=== PATIENT | female | born 1990 | race Caucasian/White ===

== ENCOUNTER 2020-01-25 14:26 | Emergency (ER) | payer OTHER ==
[2020-01-25 14:42] VITALS: BP 137/90; PULSE 88; RESP 16; TEMP 99.2
--- NOTE | 2020-01-25 15:27 | ED ---
General Adult HPI - General Chief complaint: Skin/Abscess/Foreign Body Stated complaint: L Armpit Bumps Time Seen by Provider: 01/25/20 15:00 Source: patient Mode of arrival: ambulatory Limitations: no limitations - History of Present Illness Initial comments: Dictation was produced using [employer] dictation software. please excuse any grammatical, word or spelling errors. This patient was cared for during a federal and state declared state of emergency secondary to Covid 19 Chief Complaint: 29-year-old female presents with painful lumps in the left armpit History of Present Illness: 29-year-old female she states her last today she's been having painful red lumps in her left armpit. She initially thought that it was ingrown hairs patient is never had anything like this before. States that the pain is especially painful to the touch. She has been having constitutional symptoms. Patient has never had anything like this before. She is not familiar with the word hidradenitis are pretty low. She does shave her armpit hairs regularly. The ROS documented in this emergency department record has been reviewed and confirmed by me. Those systems with pertinent positive or negative responses have been documented in the HPI. All other systems are other negative and/or noncontributory. PHYSICAL EXAM: General Impression: Alert and oriented x3, not in acute distress HEENT: Normocephalic atraumatic, extra-ocular movements intact, pupils equal and reactive to light bilaterally, mucous membranes moist. Cardiovascular: Heart regular rate and rhythm Chest: Able to complete full sentences, no retractions, no tachypnea Abdomen: abdomen soft, non-tender, non-distended, no organomegaly Left axilla: 3 indurated lumps in the left armpit measuring approximately 1 x 1 cm. No obvious fluctuance Musculoskeletal: Pulses present and equal in all extremities, no peripheral edema Motor: no focal deficits noted Neurological: CN II-XII grossly intact, no focal motor or sensory deficits noted Skin: Intact with no visualized rashes Psych: Normal affect and mood ED course: 29-year-old female presents with clinical presentation consistent with axillary abscesses. Upon arrival are within acceptable limits. Patient denies . She states she is not sexually active. She does not feel the need to be tested for . [id number] bedside ultrasound showed very small amount of abscess formation. Uterus pressure was performed on the 3 lesions with small amount of purulent drainage. Patient started on prescri ptions for Keflex and Bactrim. She also given by mouth analgesia. Return parameters discussed. Patient clear for discharge. - Related Data Previous Rx's Medication Instructions Recorded Cephalexin [Keflex] 500 mg PO Q6HR 5 Days #20 cap 01/25/20 HYDROcodone/APAP 5-325MG [[place] 1 tab PO Q6HR PRN 3 Days #12 tab 01/25/20 5-325] Sulfamethox-Tmp 800-160Mg [Bactrim 1 tab PO Q12HR 5 Days #10 tab 01/25/20 DS 800-160 mg] Allergies Allergy/AdvReac Type Severity Reaction Status Date / Time No Known Allergies Allergy Verified 01/25/20 14:42 Review of Systems ROS Statement: Those systems with pertinent positive or pertinent negative responses have been documented in the HPI. ROS Other: All systems not noted in ROS Statement are negative. Past Medical History Past Medical History: No Reported History History of Any Multi-Drug Resistant Organisms: None Reported Past Surgical History: No Surgical Hx Reported Smoking Status: Never smoker Past Alcohol Use History: None Reported Past Drug Use History: None Reported General Exam Limitations: no limitations Course Vital Signs 01/25/20 14:39 Temperature 99.2 F Pulse Rate 88 Respiratory 16 Rate Blood Pressure 137/90 O2 Sat by Pulse 98 Oximetry Disposition Clinical Impression: Hidradenitis Disposition: HOME SELF-CARE Condition: Fair Instructions (If sedation given, give patient instructions): Abscess (ED) Additional Instructions: 1. Wash your left armpit once or twice daily with warm water 2. Your given prescriptions for antibiotics that were sent to pharmacy for pickup. 3. Return to emergency department if you have any worsening symptoms including worsening pain and fevers greater than 100 4. Follow up with her primary care physician for outpatient management of symptoms 5. U do not have a list of primary care physician. Given a outpatient PCP referral. Prescriptions: Sulfamethox-Tmp 800-160Mg [Bactrim DS 800-160 mg] 1 tab PO Q12HR 5 Days #10 tab Cephalexin [Keflex] 500 mg PO Q6HR 5 Days #20 cap HYDROcodone/APAP 5-325MG [[place] 5-325] 1 tab PO Q6HR PRN 3 Days #12 tab PRN Reason: Severe Pain Is patient prescribed a controlled substance at d/c from ED?: Yes If prescribed controlled substance>3 days was MAPS reviewed?: Prescribed <3 Days Referrals: Kirsty Ram MD [STAFF PHYSICIAN] - 1-2 days Time of Disposition: 15:49
[2020-01-25] MEDS ORDERED: LIDOCAINE 1%-EPI 1:100,000 20 ML VIAL SQ STA (15:35)
[2020-01-25] MEDS ORDERED: LIDOCAINE 1% INJ 10MG/ML (20 ML MDV) SQ ONE (15:38)
[2020-01-25] MEDS ORDERED: MORPHINE SULFATE 4 MG/ML SYRINGE IM STA (15:43)
--- NOTE | 2020-01-26 12:10 | CDI ---
Dear Alex Reed DO> Please do addendum for procedure done related to lidocaine Hcl , required Thank you, Vilma Rosas, [employer] If you have any questions, please contact Information Systems Security Specialist at [phone] [facility]
--- NOTE | 2020-01-30 07:09 | ED ---
Disposition Clinical Impression: Hidradenitis Disposition: HOME SELF-CARE Condition: Fair Instructions (If sedation given, give patient instructions): Abscess (ED) Additional Instructions: 1. Wash your left armpit once or twice daily with warm water 2. Your given prescriptions for antibiotics that were sent to pharmacy for pickup. 3. Return to emergency department if you have any worsening symptoms including worsening pain and fevers greater than 100 4. Follow up with her primary care physician for outpatient management of symptoms 5. U do not have a list of primary care physician. Given a outpatient PCP referral. Prescriptions: Sulfamethox-Tmp 800-160Mg [Bactrim DS 800-160 mg] 1 tab PO Q12HR 5 Days #10 tab Cephalexin [Keflex] 500 mg PO Q6HR 5 Days #20 cap HYDROcodone/APAP 5-325MG [[place] 5-325] 1 tab PO Q6HR PRN 3 Days #12 tab PRN Reason: Severe Pain Is patient prescribed a controlled substance at d/c from ED?: No Referrals: Kirsty Ram MD [STAFF PHYSICIAN] - 1-2 days Time of Disposition: 07:09 Procedures - [place] Protocol (Time Out) Procedure Performed:: needle aspiration Performing Provider: Alex Reed Nurse: Leydi Ba Patient Identification (2 identifiers required): Verbal, Arm Band, Birthdate, Medical Record Number 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
== END 2020-01-25 16:20 | disposition home or self-care (01) ==
LOC: EC 14:26
DX: L73.2 Hidradenitis suppurativa (principal); L02.414 Cutaneous abscess of left upper limb
CPT/HCPCS: 99283; 10160; 96372; J2270; J2001

== ENCOUNTER 2021-08-15 19:09 | Emergency (ER) | payer BC, OTHER ==
[2021-08-15 20:30] VITALS: BP 128/87; PULSE 113; RESP 20; TEMP 98.3
[2021-08-15] MEDS ORDERED: KETOROLAC 15 MG/ML 1 ML VIAL IVP STA (21:51)
[2021-08-15] MEDS ORDERED: SODIUM CHLORIDE 0.9% 1,000 ML IV STA ×2 (21:51)
[2021-08-15] MEDS ORDERED: ONDANSETRON 4 MG/2 ML VIAL IVP STA (21:52)
[2021-08-15 22:56] LABS: Amorphous Sediment,Urine Moderate /hpf; Appearance,Urine Turbid (Clear); Bacteria,Urine Occasional /hpf; Bilirubin,Urine Negative (Negative); Blood,Urine Negative (Negative); Color,Urine Yellow; Glucose,Urine (UA) Negative (Negative); Hyaline Casts,Urine 134 /lpf (0-2); Ketones,Urine Trace (Negative); Leukocyte Esterase,Urine Large (Negative); Mucus,Urine Many /hpf; Nitrite,Urine Negative (Negative); PH, Urine 5.5 (5.0-8.0); Protein,Urine 2+ (Negative); Squamous Epithelial Cell,Urine 75 /hpf (0-4); WBC,Urine 25 /hpf (0-5)
--- NOTE | 2021-08-15 23:03 | ED ---
General Adult HPI - General Source: patient Mode of arrival: ambulatory Limitations: no limitations <Mario Toney - Last Filed: 08/15/21 23:01> <Geoff Lara - Last Filed: 08/16/21 00:24> - General Chief complaint: Back Pain/Injury Stated complaint: Lower back/chest/leg pain Time Seen by Provider: 08/15/21 21:42 - History of Present Illness Initial comments: This 31-year-old female presents with a complaint of some pain into her left flank region. She states that this started on Saturday, approximately 4 days ago. She was having nausea and vomiting at that time as well. She denies any diarrhea, fevers, chills. She denies any frequency, urgency or dysuria. She states that it is also somewhat painful in her left upper quadrant. There is no chest pain. She denies any shortness of breath. She states that the vomiting seemed to improve when she applied some [place] oil. The pain still is fairly persistent. She denies any history of kidney stones or pyelonephritis. No other complaints or modifying factors. (Mario Toney) - Related Data Home Medications Medication Instructions Recorded Confirmed Buprenorphine HCl/Naloxone HCl 1 film SL TID 08/15/21 08/15/21 [Suboxone 8 mg-2 mg Sl Film] Desvenlafaxine Succinate [Pristiq 50 mg PO PC-LUNCH 08/15/21 08/15/21 ER] Gabapentin 600 mg PO TID 08/15/21 08/15/21 Previous Rx's Medication Instructions Recorded Sulfamethox-Tmp 800-160Mg [Bactrim 1 each PO Q12HR #14 tab 08/16/21 Ds] Allergies Allergy/AdvReac Type Severity Reaction Status Date / Time No Known Allergies Allergy Verified 08/15/21 23:16 Review of Systems ROS Other: All systems not noted in ROS Statement are negative. <Mario Toney - Last Filed: 08/15/21 23:01> ROS Other: All systems not noted in ROS Statement are negative. <Geoff Lara - Last Filed: 08/16/21 00:24> ROS Statement: Those systems with pertinent positive or pertinent negative responses have been documented in the HPI. Past Medical History Past Medical History: No Reported History History of Any Multi-Drug Resistant Organisms: None Reported Past Surgical History: Tonsillectomy Past Psychological History: No Psychological Hx Reported Smoking Status: Current every day smoker Past Alcohol Use History: None Reported Past Drug Use History: None Reported <Mario Toney - Last Filed: 08/15/21 23:01> General Exam Limitations: no limitations <DawnaMarioHang - Last Filed: 08/15/21 23:01> - General Exam Comments Initial Comments: GENERAL: The patient is well nourished and well hydrated. VITAL SIGNS: Heart rate, blood pressure, respiratory rate reviewed as recorded in nurse's notes. EYES: Pupils are round and reactive. Extraocular movements are intact. No conjunctival / lid redness or swelling. ENT: No external evidence of injury, swelling, or ecchymosis. Airway is patent. Throat is clear. NECK: Nontender. No swelling or evidence of injury. No subcutaneous emphysema. Trachea is midline. No thyroid mass. HEART: Regular rate and rhythm. Good peripheral pulses. LUNGS/CHEST: Breath sounds clear and equal bilaterally. No rales, rhonchi, or wheezes. No ecchymosis, subcutaneous emphysema, or tenderness. ABDOMEN: Abdomen soft with tenderness noted to the left flank and slightly to the left upper quadrant. No palpable masses or organomegaly. No peritoneal signs. No abdominal wall swelling or ecchymosis. EXTREMITIES: No extremity tenderness. Normal muscle tone and function. No thoracolumbar tenderness. NEUROLOGIC: Sensation is grossly intact. Cranial nerve exam reveals face is symmetrical, tongue is midline, speech is clear. SKIN: No abrasions or ecchymosis is noted. No induration or masses noted. PSYCHIATRIC: Alert and oriented. Appropriate behavior and judgment. (Mario Toney) Course Vital Signs 08/15/21 20:27 Temperature 98.3 F Pulse Rate 113 H Respiratory 20 Rate Blood Pressure 128/87 O2 Sat by Pulse 99 Oximetry Medical Decision Making <Mario Toney - Last Filed: 08/15/21 23:01> - Lab Data Result diagrams: 08/15/21 22:21 08/15/21 22:21 <Geoff Lara - Last Filed: 08/16/21 00:24> - Medical Decision Making The patient was seen and examined. All diagnostics are reviewed to this point. She has a negative test. The patient receives an IV with IV fluid hydration as well as Toradol and Zofran intravenously. She is pending a urinalysis, laboratory analysis, and computed tomography scan of the abdomen and pelvis without contrast. Further care will be signed out to Dr. Carbajal. (Mario Toney) - Lab Data Lab Results 08/15/21 08/15/21 08/15/21 Range/Units 22:21 22:21 22:21 WBC 11.5 H (3.8-10.6) k/uL RBC 5.05 (3.80-5.40) m/uL Hgb 16.4 H (11.4-16.0) gm/dL Hct 48.2 H (34.0-46.0) % MCV 95.4 (80.0-100.0) fL MCH 32.4 (25.0-35.0) pg MCHC 34.0 (31.0-37.0) g/dL RDW 12.8 (11.5-15.5) % Plt Count 283 (150-450) k/uL MPV 7.3 Sodium 136 L (137-145) mmol/L Potassium 3.9 (3.5-5.1) mmol/L Chloride 106 (98-107) mmol/L Carbon Dioxide 19 L (22-30) mmol/L Anion Gap 11 mmol/L BUN 19 H (7-17) mg/dL Creatinine 0.91 (0.52-1.04) mg/dL Est GFR (CKD-EPI)AfAm >90 (>60 ml/min/1.73 sqM) Est GFR (CKD-EPI)NonAf 84 (>60 ml/min/1.73 sqM) Glucose 95 (74-99) mg/dL Calcium 9.3 (8.4-10.2) mg/dL Lipase 142 (23-300) U/L Urine Color Yellow Urine Appearance Turbid H (Clear) Urine pH 5.5 (5.0-8.0) Ur Specific [place] 1.030 (1.001-1.035) Urine Protein 2+ H (Negative) Urine Glucose (UA) Negative (Negative) Urine Ketones Trace H (Negative) Urine Blood Negative (Negative) Urine Nitrite Negative (Negative) Urine Bilirubin Negative (Negative) Urine Urobilinogen 2.0 (<2.0) mg/dL Ur Leukocyte Esterase Large H (Negative) Urine WBC 25 H (0-5) /hpf Ur Squamous Epith Cells 75 H (0-4) /hpf Amorphous Sediment Moderate H (None) /hpf Urine Bacteria Occasional H (None) /hpf Hyaline Casts 134 H (0-2) /lpf Urine Mucus Many H (None) /hpf Urine HCG, Qual (Not Detectd) 08/15/21 Range/Units 22:21 WBC (3.8-10.6) k/uL RBC (3.80-5.40) m/uL Hgb (11.4-16.0) gm/dL Hct (34.0-46.0) % MCV (80.0-100.0) fL MCH (25.0-35.0) pg MCHC (31.0-37.0) g/dL RDW (11.5-15.5) % Plt Count (150-450) k/uL MPV Sodium (137-145) mmol/L Potassium (3.5-5.1) mmol/L Chloride (98-107) mmol/L Carbon Dioxide (22-30) mmol/L Anion Gap mmol/L BUN (7-17) mg/dL Creatinine (0.52-1.04) mg/dL Est GFR (CKD-EPI)AfAm (>60 ml/min/1.73 sqM) Est GFR (CKD-EPI)NonAf (>60 ml/min/1.73 sqM) Glucose (74-99) mg/dL Calcium (8.4-10.2) mg/dL Lipase (23-300) U/L Urine Color Urine Appearance (Clear) Urine pH (5.0-8.0) Ur Specific [place] (1.001-1.035) Urine Protein (Negative) Urine Glucose (UA) (Negative) Urine Ketones (Negative) Urine Blood (Negative) Urine Nitrite (Negative) Urine Bilirubin (Negative) Urine Urobilinogen (<2.0) mg/dL Ur Leukocyte Esterase (Negative) Urine WBC (0-5) /hpf Ur Squamous Epith Cells (0-4) /hpf Amorphous Sediment (None) /hpf Urine Bacteria (None) /hpf Hyaline Casts (0-2) /lpf Urine Mucus (None) /hpf Urine HCG, Qual Not Detected (Not Detectd) Disposition <Mario Toney - Last Filed: 08/15/21 23:01> Is patient prescribed a controlled substance at d/c from ED?: No <Geoff Lara - Last Filed: 08/16/21 00:24> Clinical Impression: Left flank pain, Left upper quadrant abdominal pain, Nausea and vomiting, Urinary tract infection Disposition: HOME SELF-CARE Condition: Fair Instructions (If sedation given, give patient instructions): Flank Pain (ED), Urinary Tract Infection in Women (ED) Prescriptions: Sulfamethox-Tmp 800-160Mg [Bactrim Ds] 1 each PO Q12HR #14 tab Referrals: Nonstaff,Physician [Primary Care Provider] - 1-2 days
--- NOTE | 2021-08-15 23:26 | CT ---
EXAMINATION TYPE: CT abdomen pelvis wo con DATE OF EXAM: 08/15/2021 COMPARISON: None HISTORY: left flank pain. no prior on PACS CT DLP: 1248.4 mGycm Automated exposure control for dose reduction was used. Images obtained from the diaphragm to the floor the pelvis without contrast. Lung bases are clear. There is no pleural effusion. Heart size is normal. No pericardial effusion. There is no adrenal mass. Liver spleen stomach pancreas and gallbladder appear intact. The bile ducts are not dilated. Kidneys have normal size. There is no hydronephrosis. Ureters are not dilated. There is no retroperit montoya adenopathy. Appendix is posterior and appears normal. Bladder distends smoothly. Uterus is ante verted. There is 5.2 cm rounded soft tissue density mass in the pelvis on the left side that could be ovarian mass or uterine fundal fibroid. There is no mesenteric edema. No ascites or free air. No bowel obstruction. The lumbar vertebrae have normal alignment. Posterior elements are intact. There is 25% anterior wedg ing of T12 vertebra. Margins are smooth and this is probably an old fracture. The bony pelvis is inta ct. The hip joints are intact. Sacroiliac joints appear normal. IMPRESSION: No evidence of renal stone or obstruction. Left-sided pelvic mass could be ovarian mass or uterine fi broid and ultrasound recommended for further evaluation. Normal appendix.
[2021-08-15 23:28] LABS: HCT 48.2 % (34.0-46.0); HGB 16.4 gm/dL (11.4-16.0); MCH 32.4 pg (25.0-35.0); MCV 95.4 fL (80.0-100.0); Mean Platelet Volume 7.3; Platelet Count 283 k/uL (150-450); RBC 5.05 m/uL (3.80-5.40); RDW 12.8 % (11.5-15.5); WBC 11.5 k/uL (3.8-10.6)
[2021-08-15 23:30] LABS: African American GFR (CKD) >90 (>60 ml/min/1.73 sqM); Anion Gap 11 mmol/L; Blood Urea Nitrogen 19 mg/dL (7-17); Calcium 9.3 mg/dL (8.4-10.2); Carbon Dioxide 19 mmol/L (22-30); Chloride 106 mmol/L (98-107); Glucose 95 mg/dL (74-99); Lipase 142 U/L (23-300); Non-African American GFR(CKD) 84 (>60 ml/min/1.73 sqM); Potassium 3.9 mmol/L (3.5-5.1); Sodium 136 mmol/L (137-145)
[2021-08-16 01:02] LABS: Band Neutrophils % 1 %; Basophils # (M) 0.12 k/uL (0-0.2); Lymphocytes # (M) 3.68 k/uL (1.0-4.8); Monocytes # (M) 0.69 k/uL (0-1.0); Neutrophils % (M) 60 %; Nucleated Red Blood Cells 0 /100 WBC (0-0); Total Cells Counted 100
== END 2021-08-16 00:41 | disposition home or self-care (01) ==
LOC: EC 19:09
DX: N39.0 Urinary tract infection, site not specified (principal); F17.200 Nicotine dependence, unspecified, uncomplicated; Z79.899 Other long term (current) drug therapy
CPT/HCPCS: 36415; 93005; 80048; 83690; 85025; 81001; 81025; 74176; 99284; 96374; 96375; J2405; J1885

== ENCOUNTER → 2024-03-19 | Outpatient (CLI) | payer OTHER ==
--- NOTE | 2024-03-19 14:59 | XR ---
EXAMINATION TYPE: XR lumbar spine 3V, XR knee complete 3 views LT DATE OF EXAM: 03/19/2024 1:41 PM COMPARISON: CT 08/15/2021 CLINICAL INDICATION: Female, 33 years old with history of S33.5XXA lumbar strain, pain after fall FINDINGS: Lumbar spine: Slight levoconvex curvature centered at the thoracolumbar junction. There is a transitional lumbosacr al segment with left L5 hemisacralization. Small T12 ribs. There is T12 anterior wedge deformity with 30% anterior height loss. Remaining vertebral body heights are preserved. There is mild to moderate degenerative disc disease L4-L5 and L5-S1. Facet arthropathy lower lumbar spine. Left knee: There is tricompartmental degenerative spurring. Trace knee joint effusion. Extensor mechanism appear s intact. No acute fracture, subluxation, dislocation. IMPRESSION: 1. Lumbar spine: Chronic T12 anterior wedge deformity, unchanged from 2021. No new vertebral compress ion collapse or malalignment. Moderate degenerative disc disease lower lumbar spine with hypertrophic facet arthropathy. 2. Left knee: Tricompartmental degenerative spurring. Trace knee joint effusion. No acute osseous abn ormality seen. [facility], , 03/19/2024 2:57 PM
== END | disposition home or self-care (01) ==
LOC: RADXRMAIN 13:16
PROVIDERS: ATTEND Emergency Medicine
DX: S83.92XA Sprain of unspecified site of left knee, initial encounter (principal); M51.369 Other intervertebral disc degeneration, lumbar region without mention of lumbar back pain or lower extremity pain; M48.54XA Collapsed vertebra, not elsewhere classified, thoracic region, initial encounter for fracture; M47.816 Spondylosis without myelopathy or radiculopathy, lumbar region; M25.462 Effusion, left knee; X58.XXXA Exposure to other specified factors, initial encounter
CPT/HCPCS: 72100

== ENCOUNTER → 2024-08-14 | Outpatient (CLI) | payer BC ==
--- NOTE | 2024-08-14 16:21 | CT ---
EXAMINATION TYPE: CT brain wo con CT DLP: 1116 mGycm, Automated exposure control for dose reduction was used. DATE OF EXAM: 08/14/2024 4:13 PM COMPARISON: None. CLINICAL INDICATION:Female, 34 years old with history of R51.9 HEADACHE, HEADACHES X 6 MONTHS, WORSEN ED THE LAST 2 MONTHS, FAMILY HX OF BRAIN TUMORS TECHNIQUE: Brain: Multiple axial CT images of the brain were obtained without IV contrast. . Coronal and sagitta l reformats reviewed. FINDINGS: Brain: Extra-axial spaces: No abnormal extra-axial fluid collections. Ventricular system: Within normal limits Cerebral parenchyma: No acute intraparenchymal hemorrhage or mass effect. The campbell-white junction is well differentiated. Cerebellum: Unremarkable. Mass effect: No evidence of midline shift. Intracranial vasculature: unremarkable Soft tissues: Normal. Calvarium/osseous structures: No depressed skull fracture. Paranasal sinuses and mastoid air cells: Clear Visualized orbits: Orbital contents are intact. IMPRESSION: No acute intracranial process. [facility], , 08/14/2024 4:19 PM
== END | disposition home or self-care (01) ==
LOC: RADCTMAIN 15:45
PROVIDERS: ATTEND Family Medicine
DX: R51.9 Headache, unspecified (principal)
CPT/HCPCS: 70450